=== PATIENT | male | born 1975 | race Caucasian/White ===

== ENCOUNTER 2023-02-13 12:00 | Outpatient (CLI) | payer BC, SELFPAY | END 2023-02-13 12:01 | disposition home or self-care (01) | LOC: NFLDUCREF 12:03 | PROVIDERS: PCP Family Medicine; Visit Provider Physician Assistant | DX: R35.81 Nocturnal polyuria (principal); R35.89 Other polyuria | CPT/HCPCS: 84153 ==

== ENCOUNTER 2023-02-24 08:10 | Outpatient (CLI) | payer BC, SELFPAY | END 2023-02-24 08:11 | disposition home or self-care (01) | PROVIDERS: PCP Family Medicine; Visit Provider Family Medicine | DX: Z00.00 Encounter for general adult medical examination without abnormal findings (principal); R35.1 Nocturia; R73.9 Hyperglycemia, unspecified; Z13.6 Encounter for screening for cardiovascular disorders | CPT/HCPCS: 80053; 80061; 82306 ==

== ENCOUNTER 2023-03-20 09:50 | Outpatient (CLI) | payer BC, SELFPAY ==
--- NOTE | 2023-03-20 11:34 | W.ANESCHARGE ---
Anesthesia Charges Start Date/Time Anesthesia Start Date: 03/20/23 Anesthesia Start Time: 11:00 Stop Date/Time Anesthesia Stop Date: 03/20/23 Anesthesia Stop Time: 11:30
--- NOTE | 2023-03-20 11:54 | W.ANESCHARGE ---
Anesthesia Charges Start Date/Time Anesthesia Start Date: 03/20/23 Anesthesia Start Time: 11:00 Stop Date/Time Anesthesia Stop Date: 03/20/23 Anesthesia Stop Time: 11:30
== END 2023-03-20 09:51 | disposition home or self-care (01) ==
LOC: OP CLINIC 09:50
PROVIDERS: PCP Family Medicine; Visit Provider Internal Medicine
DX: Z86.010 Personal history of colon polyps (principal)
CPT/HCPCS: 00811; 45380; 88305; J2704